=== PATIENT | female | born 1955 ===

== ENCOUNTER 2020-08-30 11:34 | Emergency (ER) | payer MEDICARE, SELFPAY ==
[2020-08-30 11:50] VITALS: BP 184/96; PULSE 86; RESP 18; TEMP 37; O2SAT 98
--- NOTE | 2020-08-30 11:54 | ED.URI ---
HPI - URI/Sore Throat General Chief Complaint: Upper Respiratory Infection Stated Complaint: Sinus Time Seen by Provider: 08/30/20 12:00 Source: patient and RN notes reviewed Mode of arrival: ambulatory Limitations: no limitations History of Present Illness HPI Narrative: 65-year-old female presents concern for sinus pain, facial pain, dental pain. Reports symptoms started several weeks ago with sinus pressure, sinus drainage. Reports most of the symptoms have improved, however she now has left-sided dental pain, jaw swelling, redness. Reports she has been taking [id number] sinus medications. Reports she has history of smoking. Reports taking 3 days worth of leftover doxycycline with no relief. She denies swollen lips, swollen tongue, difficulty swallowing, fever, body aches, malaise. MD elicited complaint: nasal congestion Related Data Allergies Allergy/AdvReac Type Severity Reaction Status Date / Time Penicillins Allergy Unknown Pt does Verified 08/30/20 12:02 not remember reaction MEPERIDINE HCL Allergy Severe PT STATES Uncoded 08/30/20 12:02 SHE WAS TOLD AFTER AN EPISODE TO NEVER TAKE Review of Systems Review of Systems: Narrative: CONSTITUTIONAL: Denies malaise, chills, sweats, or fever. EYES: Denies visual changes, redness, or discharge. ENT: Reports rhinorrhea, congestion, sinus pain, left-sided dental and lower jaw pain. Denies otalgia and sore throat. CARDIOVASCULAR: Denies chest pain, palpitations, or edema. RESPIRATORY: Reports occasional smokers cough. Denies dyspnea. GASTROINTESTINAL: Denies abdominal pain, nausea, vomiting, diarrhea SKIN: Denies rash or itching. MUSCULOSKELETAL: Denies myalgia. NEUROLOGIC: Denies headache. All systems reviewed & are unremarkable except as noted in HPI and below PMFSH Social History Social History Gender identity (if verbalized by the patient): Female Comments At time of signature, agree with nursing past medical, surgical, social and family history. There is no relevant family history pertinent to the presenting complaint Exam Narrative: Exam Narrative: GENERAL: Well-appearing, well-nourished, and in no acute distress. HEAD: Normocephalic EYES: PERRLA, conjunctivae clear ENT: Nares clear, turbinates erythematous, clear discharge. Mucous membranes moist. TM pearly cummins with dull light reflex bilaterally; no tragal tenderness. Oropharynx not erythematous without lesions. Tonsils not enlarged and without exudate, no drooling, no hoarseness, no trismus, uvula midline. Left sided mild jaw swelling facial swelling with slight erythema and warmth, no induration, no fluctuation noted. Missing teeth, dental caries. NECK: Supple. No lymphadenopathy CHEST: Clear to auscultation, breath sounds equal. No wheezing, rhonchi, rales, or stridor. No respiratory distress, speaks in full sentences. HEART: Regular rate and rhythm. No murmur heard. SKIN: Warm, dry, no rash. NEURO: Alert and oriented x3. PSYCH: Normal mood and affect Course Course Emergency Course: Patient is aware of diagnosis, understands and agrees to treatment plan. Anticipatory guidance given. Patient agrees to follow-up as directed and is aware of reasons to seek care at the emergency department. Portions of this record may have been created with voice recognition software Vital Signs Vital signs: Vital Signs Temperature 98.6 F 08/30/20 11:50 Pulse Rate 86 08/30/20 11:50 Respiratory Rate 18 08/30/20 11:50 Blood Pressure 184/96 H 08/30/20 11:50 Pulse Oximetry 98 08/30/20 11:50 Temperature 98.6 F 08/30/20 11:50 Pulse Rate 86 08/30/20 11:50 Respiratory Rate 18 08/30/20 11:50 Blood Pressure 184/96 H 08/30/20 11:50 Pulse Oximetry 98 08/30/20 11:50 Reviewed. MDM - URI/Sore Throat MDM Narrative Medical decision making narrative: Differential diagnosis considered: Dental abscess, dental infection, parotid duct obstruction, parotiditi
== END 2020-08-30 12:16 | disposition home or self-care (01) ==
PROVIDERS: Emergency Provider Nurse Practitioner
DX: K04.7 Periapical abscess without sinus (principal); J01.90 Acute sinusitis, unspecified
CPT/HCPCS: 99213; G0463

== ENCOUNTER 2020-09-10 14:33 | Emergency (ER) | payer MEDICARE, SELFPAY ==
--- NOTE | ~2020-09-10 | XR_ITS ---
EXAMINATION: XR chest 2V EXAM DATE: 09/10/2020 15:57 INDICATION: Elevated blood pressure. TECHNIQUE: Frontal and lateral projections of the chest obtained and reviewed. There is no prior suzan dy for comparison. FINDINGS: The lungs are clear. There are no pleural effusions. The cardiomediastinal silhouette is within normal limits. There is no pneumothorax suspected. The bones and soft tissues are unremarkab le. IMPRESSION: Unremarkable chest x-ray exam. Reviewed, dictated and finalized at location A.
[2020-09-10 15:38] VITALS: BP 229/96; PULSE 92; RESP 16; TEMP 36.4; O2SAT 98
--- NOTE | 2020-09-10 15:41 | ECG_ITS ---
Measurements Intervals [place] Rate: 82 P: 76 NH: 116 QRS: 35 QRSD: 76 T: 108 QT: 370 QTc: 433 Interpretive Statements SINUS RHYTHM WITH SHORT NH INTERVAL POSSIBLE LEFT ATRIAL ENLARGEMENT BORDERLINE ST-T WAVE ABNORMALITY- HIGH LATERAL LEADS BORDERLINE ECG Electronically Signed On 09-10-2020 19:43:34 CDT by Mirza Toledo D.O.
--- NOTE | 2020-09-10 15:56 | PC.NURSE ---
PT WENT OUTSIDE TO SMOKE DESPITE US TELLING HER TO STAY INSIDE.
[2020-09-10 16:55] LABS: Basophils Absolute Auto 0.1 K/mm3 (0.0-0.1); Basophils Percent Auto 0.5 % (0.2-1.2); Eosinophils Absolute Auto 0.1 K/mm3 (0-0.3); Eosinophils Percent Auto 0.7 % (0-4.4); Hematocrit 46.5 % (37.0-47.0); Hemoglobin 14.8 g/dL (12.0-15.0); Immature Granulocyte Absolute 0.05 K/mm3 (0.00-0.031); Immature Granulocyte Percent A 0.4 % (0-0.5); Lymphocytes Absolute Auto 3.55 K/mm3 (0.9-3.2); Lymphocytes Percent Auto 29.3 % (18.3-44.2); Mean Corpuscular HGB Conc 31.8 g/dl (32-36); Mean Corpuscular Hemoglobin 30.9 pg (26-34); Mean Corpuscular Volume 97.1 fl (80-100); Mean Platelet Volume 9.4 fl (7.4-10.4); Monocytes Absolute Auto 0.6 K/mm3 (0.1-0.6); Monocytes Percent Auto 4.9 % (2.6-8.5); Neutrophils Absolute Auto 7.8 K/mm3 (1.3-6.7); Neutrophils Percent Auto 64.2 % (45.5-73.1); Platelet Count Result 297 k/mm3 (150-375); Red Blood Count 4.79 M/mm3 (4.2-5.4); Red Cell Distribution Width 13.2 % (11.5-14.5); White Blood Count 12.1 K/mm3 (4.5-10.0)
[2020-09-10 17:05] LABS: Alanine Aminotransferase 29 U/L (4-35); Albumin Level 4.8 g/dL (3.5-5.1); Alkaline Phosphatase 84 U/L (38-126); Anion Gap 12 mmol/L (8-16); Aspartate Amino Transferase 26 U/L (14-36); Bilirubin,Total 0.5 mg/dL (0.2-1.3); Blood Urea Nitrogen 8 mg/dL (7-17); Calcium 9.9 mg/dL (8.4-10.2); Carbon Dioxide 24 mmol/L (22-30); Chloride 105 mmol/L (98-107); Estimated CRCL calculation 66 ml/min; Estimated Glomerular Filt Rate > 60; Glucose 109 mg/dL (65-110); INR 0.9; Potassium 3.5 mmol/L (3.4-5.0); Prothrombin Time 11.6 Seconds (11.1-14.7); Sodium 141 mmol/L (137-145)
[2020-09-10 17:06] LABS: Partial Thromboplastin Time 27.5 SECONDS (22.3-36.8)
[2020-09-10 17:16] LABS: Troponin I < 0.012 ng/mL (0.000-0.034)
[2020-09-10 17:46] VITALS: BP 221/94; PULSE 92; RESP 16; TEMP 36.8; O2SAT 100
--- NOTE | 2020-09-10 18:06 | ED.RECABL ---
HPI - Recheck/Abnormal Lab/Rx General Chief Complaint: Recheck/Abnormal Lab/Rx Stated Complaint: htn when at dentist Time Seen by Provider: 09/10/20 17:52 Source: patient Mode of arrival: ambulatory Limitations: no limitations History of Present Illness HPI narrative: This is a 65-year-old female that presents to the emergency department for elevated blood pressure. She was at the dentist today about to have a tooth pulled. They noted that her blood pressure was elevated and sent her to the emergency department for this. Patient denies any symptoms currently. She does not have a primary care doctor currently, has not seen a doctor in about 10 years. Denies headache, vision changes, chest pain, shortness of breath, or lower extremity edema. Related Data Allergies Allergy/AdvReac Type Severity Reaction Status Date / Time Penicillins Allergy Unknown Pt does Verified 08/30/20 12:02 not remember reaction MEPERIDINE HCL Allergy Severe PT STATES Uncoded 08/30/20 12:02 SHE WAS TOLD AFTER AN EPISODE TO NEVER TAKE Review of Systems Review of Systems: Narrative: CONSTITUTIONAL: Denies fever EYES: Denies visual changes CARDIOVASCULAR: Denies chest pain, or edema. RESPIRATORY: Denies dyspnea. NEUROLOGIC: Denies headache, numbness, or weakness. All systems reviewed & are unremarkable except as noted in HPI and below PMFSH Social History Social History (Updated 09/10/20 @ 18:08 by Victoria Navarrete PA-C) Smoking status: Current every day smoker Substance use: never Gender identity (if verbalized by the patient): Female Exam Narrative: Exam Narrative: GENERAL: Well-appearing, well-nourished, and in no acute distress. HEAD: Normocephalic, atraumatic. EYES: PERRLA and EOMI. ENT: Nares clear, no rhinorrhea or epistaxis. Mucous membranes moist. Oropharynx without tonsillar hypertrophy exudate or other lesions. Poor dentition. Bilateral TMs pearly cummins non-bulging NECK: Supple. No adenopathy or masses. CHEST: Clear to auscultation. No respiratory distress. No wheezes rales or rhonchi HEART: Regular rate and rhythm. No murmur heard. Normal peripheral pulses. EXTREMITIES: Normal range of motion. No edema. SKIN: Warm, dry, no rash. NEURO: No focal deficits. Alert and oriented x3. PSYCH: Normal mood and affect Course Consultations Consultation #1: Spoke with Dr. Gramajo about patient and workup. Would like patient started on Metoprolol and will follow up in clinic Date: 09/10/20 Time: 19:01 Vital Signs Vital signs: Vital Signs Temperature 97.6 F 09/10/20 15:38 Pulse Rate 92 09/10/20 15:38 Respiratory Rate 16 09/10/20 15:38 Blood Pressure 229/96 H 09/10/20 15:38 Pulse Oximetry 98 09/10/20 15:38 Temperature 98.2 F 09/10/20 17:46 Pulse Rate 73 09/10/20 18:39 Respiratory Rate 16 09/10/20 18:39 Blood Pressure 180/74 H 09/10/20 18:39 Pulse Oximetry 100 09/10/20 18:39 MDM - Recheck/Abnormal Lab/Rx MDM Narrative Medical decision making narrative: Patient presents to the emergency department for asymptomatic hypertension. Noted at her dental appointment today. Blood pressure initially elevated to the 220s systolic. Patient given dose of labetalol in the ER with improvement. Most recent blood pressure 179/79. CBC and metabolic panel without concerning findings. EKG with nonspecific ST changes. Baseline troponin is negative. She denies any chest pain. Chest x-ray is without acute cardiopulmonary abnormality. Patient updated on case findings. Spoke with Dr. Gramajo about patient and work-up who would like patient started on metoprolol will follow-up in clinic. Patient is stable and felt appropriate for further outpatient evaluation. She was given warnings to return to the ER Lab Data Attestation: I reviewed the patient's lab results. Result diagrams: 09/10/20 16:41 09/10/20 16:41 Labs: Lab Results 09/10/2009/10
[2020-09-10] MEDS: LABETALOL HCL INJ 100 MG/20 ML VIAL 20 MG IV PUSH (18:14)
[2020-09-10 18:17] VITALS: PULSE 71
[2020-09-10 18:39] VITALS: BP 180/74; PULSE 73; RESP 16; O2SAT 100
--- NOTE | 2020-09-10 19:09 | PC.NURSE ---
report to peggy gaitan
[2020-09-10 19:20] VITALS: BP 171/84; PULSE 74; RESP 16; O2SAT 94
== END 2020-09-10 19:20 | disposition home or self-care (01) ==
PROVIDERS: Emergency Medicine; Emergency Provider Emergency Medicine
DX: I10 Essential (primary) hypertension (principal); F17.200 Nicotine dependence, unspecified, uncomplicated; R94.31 Abnormal electrocardiogram [ECG] [EKG]
CPT/HCPCS: 36415; 71046; 80053; 84484; 85025; 85610; 85730; 93005; 96374; 99284